=== PATIENT | female | born 1965 | race Caucasian/White ===

== ENCOUNTER 2016-10-02 07:30 | Inpatient (IN) | payer MEDICARE, MEDICAID ==
[2016-10-02] MEDS ORDERED: Meropenem 500 MG SDV ONE (07:59)
[2016-10-02] MEDS ORDERED: Naloxone 0.4 MG/ML SDV IVPUSH PRN (08:46)
[2016-10-02] MEDS ORDERED: HYDROmorphone/Normal Saline 15 MG/30 ML PCA IV PRN (08:46)
[2016-10-02] MEDS ORDERED: Naloxone 0.4 MG/ML SDV IV PRN (08:49)
[2016-10-02] MEDS ORDERED: Gabapentin 300 MG Cap PO ONE (09:00)
[2016-10-02] MEDS ORDERED: Dextrose 5%-Lactated Ringers 1,000 ML IV SCH (09:30)
[2016-10-02] MEDS ORDERED: Meropenem 500 MG in Sodium Chloride 0.9% 50 ML IV ONE (10:15)
[2016-10-02] MEDS ORDERED: fentaNYL 250 MCG/5 ML SDV ONE (10:21)
[2016-10-02] MEDS ORDERED: Midazolam 1 MG/ML 2 ML SDV ONE (10:21)
[2016-10-02] MEDS ORDERED: Ondansetron 4 MG/2 ML SDV ONE (10:24)
[2016-10-02] MEDS ORDERED: Propofol 200 MG/20 ML SDV ONE (10:24)
[2016-10-02] MEDS ORDERED: Neostigmine Methylsulfate 1 MG/ML 5 ML Syringe ONE (10:24)
[2016-10-02] MEDS ORDERED: Rocuronium 50 MG/5 ML Vial ONE (10:24)
[2016-10-02] MEDS ORDERED: Dexamethasone 4 MG/ML SDV ONE (10:24)
[2016-10-02] MEDS ORDERED: Ketamine 500 MG/5 ML MDV IV ONE ×2 (11:00→11:30)
[2016-10-02] MEDS ORDERED: Linezolid 200 MG/100 ML Bag IRR ONE (11:50)
[2016-10-02] MEDS ORDERED: Lactated Ringers 1,000 ML ONE (13:44)
[2016-10-02] MEDS ORDERED: Ondansetron 4 MG/2 ML SDV IVPUSH ONE (14:36)
[2016-10-02] MEDS: VERIFY FENT PATCH TOP SCH ×2 (15:52→21:22)
[2016-10-02] MEDS ORDERED: Meclizine 25 MG Tab PO PRN (15:56)
[2016-10-02] MEDS: Pantoprazole 20 MG Tab, Delayed Release PO SCH (17:35)
[2016-10-02] MEDS: Clindamycin Phosphate 900 MG in Sodium Chloride 0.9% 100 ML IV SCH (17:38)
[2016-10-02] MEDS: AMITRIPTYLINE PO SCH ×2 (21:21)
[2016-10-02] MEDS: Gabapentin 300 MG Cap PO SCH (21:21)
[2016-10-02] MEDS: buPROPion 100 MG Tab PO SCH (21:23)
[2016-10-02] MEDS: Ondansetron 4 MG/2 ML SDV IV PRN (21:25)
[2016-10-02] MEDS: Dextrose 5%-Lactated Ringers 1,000 ML IV SCH (21:26)
[2016-10-03] MEDS: ClonazePAM 1 MG Tab PO PRN ×2 (00:15→17:56)
[2016-10-03] MEDS: Clindamycin Phosphate 900 MG in Sodium Chloride 0.9% 100 ML IV SCH ×2 (00:29→08:37)
[2016-10-03] MEDS: Dextrose 5%-Lactated Ringers 1,000 ML IV SCH ×3 (03:38→20:36)
[2016-10-03] MEDS ORDERED: Acetaminophen/HYDROcodone 325-10 MG Tab PO PRN (08:10)
[2016-10-03] MEDS: Pantoprazole 20 MG Tab, Delayed Release PO SCH ×2 (08:33→16:32)
[2016-10-03] MEDS: VERIFY FENT PATCH TOP SCH ×2 (08:36→20:32)
[2016-10-03] MEDS: buPROPion 100 MG Tab PO SCH ×2 (08:36→20:32)
[2016-10-03] MEDS: Gabapentin 300 MG Cap PO SCH ×3 (08:36→20:31)
[2016-10-03] MEDS: Acetaminophen/HYDROcodone 325-10 MG Tab PO PRN ×3 (11:00→20:38)
[2016-10-03] MEDS: Ondansetron 4 MG/2 ML SDV IV PRN (16:32)
[2016-10-03] MEDS: AMITRIPTYLINE PO SCH ×2 (20:31)
[2016-10-03] MEDS: Bacitracin Oint 1 GM U/D Packet TOP SCH (20:35)
[2016-10-04] MEDS: Acetaminophen/HYDROcodone 325-10 MG Tab PO PRN (05:19)
[2016-10-04] MEDS: Pantoprazole 20 MG Tab, Delayed Release PO SCH ×2 (08:09→16:10)
--- NOTE | 2016-10-04 08:58 | PN ---
DATE OF SERVICE: 10/03/2016 The patient has been afebrile with stable vital signs. No major problems were noted overnight. Pain control appeared to be satisfactorily. She will be switched over to oral pain medicine today. We will give her ALEJO drain instructions. She will likely be ready for discharge home tomorrow. Jair Vaughn MD /[id number]
[2016-10-04] MEDS ORDERED: fentaNYL 50 MCG/HR Transdermal Patch TRDERM SCH (09:00)
[2016-10-04] MEDS: VERIFY FENT PATCH TOP SCH ×2 (09:31→20:45)
[2016-10-04] MEDS: Gabapentin 300 MG Cap PO SCH ×3 (09:31→20:45)
[2016-10-04] MEDS: buPROPion 100 MG Tab PO SCH ×2 (09:31→20:46)
[2016-10-04] MEDS: Acetaminophen/oxyCODONE 325-10 MG Tab PO PRN ×4 (09:39→22:03)
[2016-10-04] MEDS: Bacitracin Oint 1 GM U/D Packet TOP SCH ×2 (09:39→20:49)
[2016-10-04] MEDS: Ondansetron 4 MG Tab.DIS PO PRN (13:34)
[2016-10-04] MEDS: ClonazePAM 1 MG Tab PO PRN (16:10)
[2016-10-04] MEDS: AMITRIPTYLINE PO SCH ×2 (20:45)
[2016-10-05] MEDS: Acetaminophen/oxyCODONE 325-10 MG Tab PO PRN ×3 (05:41→13:50)
[2016-10-05] MEDS: Pantoprazole 20 MG Tab, Delayed Release PO SCH (07:07)
[2016-10-05] MEDS: Gabapentin 300 MG Cap PO SCH ×2 (08:28→13:50)
[2016-10-05] MEDS: buPROPion 100 MG Tab PO SCH (08:28)
[2016-10-05] MEDS: Ondansetron 4 MG Tab.DIS PO PRN (08:34)
--- NOTE | 2016-10-05 09:10 | PN ---
DATE OF SERVICE: 10/04/2016 The patient has been afebrile with stable vital signs. She was noted to be on Leon, and this is the same medication that she is on with the pain contract, so we will try switching over to Percocet today, make sure that works, and otherwise, we will take the dressing off, work on ALEJO drain instructions, and probably home tomorrow. Jair Vaughn MD /[id number]
[2016-10-05] MEDS ORDERED: fentaNYL 50 MCG/HR Transdermal Patch TRDERM ONE (10:00)
[2016-10-05] MEDS: Bacitracin Oint 1 GM U/D Packet TOP SCH (10:31)
[2016-10-05] MEDS: VERIFY FENT PATCH TOP SCH (11:51)
[2016-10-05 14:21] VITALS: BP 111/58
--- NOTE | 2016-10-09 07:48 | DISCH ---
FINAL DIAGNOSES: 1. Chronic panniculitis. 2. Umbilical and incisional hernias. 3. Bariatric surgery status. 4. History of gastroesophageal reflux disease. 5. History of Graves disease, status post radioactive iodine treatment. 6. Posttraumatic stress disorder. 7. Obstructive sleep apnea. OPERATIVE PROCEDURE: This was done on the date of admission 10/02/16, panniculectomy with concurrent repair of umbilical and incisional hernias. HOSPITAL COURSE: This is a 51-year-old female presenting with a large pannus, which has chronically been inflamed and also causing some problems with her back in terms of balance and such. On the date of admission, the patient underwent a panniculectomy. She was identified as having an umbilical and incisional hernia, which were repaired concurrently. Postoperatively, no major problems were noted. She presently will be sent home on Percocet 10/325 one or two tabs q.4 hours p.r.n. pain. She will use these for a period of time, after which she will resume her usual hydrocodone regimen. Otherwise will continue the present medications as preoperatively, and she is instructed to empty the ALEJO drains and followup will be with Nina Hansen at [facility] on 10/13/2016.
--- NOTE | 2016-10-10 09:03 | OR ---
DATE OF PROCEDURE: 10/02/2016 PREOPERATIVE DIAGNOSIS: Chronic panniculitis. POSTOPERATIVE DIAGNOSES: 1. Chronic panniculitis. 2. Umbilical hernia. 3. Incisional hernia. OPERATIVE PROCEDURE: 1. Panniculectomy (49708). 2. Repair of umbilical hernia (23621). 3. Repair of incisional hernia (31287). ANESTHESIA: General. INDICATION FOR PROCEDURE: This is a 51-year-old, status post previous Renee-en-Y gastric bypass, presenting with a large pannus which is chronically inflamed and also causing some problems with her posture and associated back discomfort. After preop evaluation and discussion, she wished to proceed with panniculectomy. Plan is to proceed with the panniculectomy with repair of the hernias that might be identified. Potential risks, including bleeding, infection, recurrence of the hernias were all reviewed, and the patient wishes to proceed. DETAILS OF PROCEDURE: The patient was taken to the operating room. After general endotracheal anesthesia was induced, a Walton catheter was inserted and the abdomen prepped and draped. A transverse elliptical incision across the abdomen was then made and carried down through the skin and subcutaneous tissue. This was carried down to the pannus. At the upper end of the left side of the panniculectomy incision as it was dissected off the muscular fascia, the patient was noted to have a trocar site type hernia, i.e. an incisional hernia. This was small enough that it was reduced and closed with a [id number] stitch of 2-0 Vicryl stitch. As one approached the umbilicus, the patient noted to have a separate umbilical hernia. The umbilical hernia contents were delivered with the specimen and then the umbilical hernia was also then closed with a [id number]-khmuv stitch of #2 Vicryl stitch. The remainder of the pannus was then dissected off the fascia and delivered from the field. It weighed 6.3 pounds. The incision was then irrigated with a meropenem-containing saline solution. Two Donny-Zambrano drains were placed superior to the incision and draped on each side. The incision was then closed with 3-0 and 4-0 Vicryl stitch deep and jabier for the skin. Drains were affixed with some 3-0 Vicryl stitch as well and patient taken to the recovery room in satisfactory condition. Jair Vaughn MD /[id number]
== END 2016-10-05 14:15 | disposition home or self-care (01) | DRG 572 ==
LOC: JP.2SS 07:30 → EDSTATUS 07:30 → JP.SDS 08:31 → JP.2SS 15:00 → UNDOADMIN 15:00 → UNDODISIN 10-05 14:15
PROVIDERS: ADMIT Surgery; ATTEND Surgery
PROC: 0WQF0ZZ Repair Abdominal Wall, Open Approach (ICD-10-PCS; principal; 2016-10-02)
PROC: 0HB7XZZ Excision of Abdomen Skin, External Approach (ICD-10-PCS; principal; 2016-10-02)
DX: M54.00 Panniculitis affecting regions of neck and back, site unspecified (principal); K42.9 Umbilical hernia without obstruction or gangrene; K43.2 Incisional hernia without obstruction or gangrene; F43.10 Post-traumatic stress disorder, unspecified; Z98.84 Bariatric surgery status; E03.9 Hypothyroidism, unspecified; F41.9 Anxiety disorder, unspecified; F32.9 Major depressive disorder, single episode, unspecified; G47.33 Obstructive sleep apnea (adult) (pediatric); Z87.891 Personal history of nicotine dependence; Z88.1 Allergy status to other antibiotic agents; Z88.5 Allergy status to narcotic agent; Z88.2 Allergy status to sulfonamides; Z88.8 Allergy status to other drugs, medicaments and biological substances; Z98.0 Intestinal bypass and anastomosis status
CPT/HCPCS: 88305; 94762; A9270-GY; J1100; J1170; J2020; J2185; J2250; J2405; J2704; J3010; J7030; J7042; J7050; J7120; S0077